=== PATIENT | male | born 1975 | race Hispanic/Latino ===

== ENCOUNTER → 2023-08-01 09:06 | Outpatient (CLI) | payer OTHER, SELFPAY ==
[2023-08-01 11:19] LABS: Add Manual Diff / Slide Review NO; Basophils Absolute Auto 0 /uL (0-100); Basophils Percent Auto 0.2 % (0-2); Eosinophils Absolute Auto 200 /uL (0-450); Eosinophils Percent Auto 2.1 % (2-4); Hematocrit 44.8 % (41-53); Hemoglobin 15.4 g/dL (13.5-17.5); Lymphocytes Absolute Auto 1500 /uL (1100-4500); Lymphocytes Percent Auto 18.7 % (25-40); Mean Corpuscular HGB Conc 34.4 % (30-36); Mean Corpuscular Hemoglobin 29.8 PG (26-34); Mean Corpuscular Volume 86.7 fL (80-100); Monocytes Absolute Auto 500 /uL (0-900); Monocytes Percent Auto 5.8 % (3-14); Neutrophils Absolute Auto 6000 /uL (1500-7000); Neutrophils Percent Auto 73.2 % (50-75); Platelet Count 203 X10^3/uL (150-400); Red Blood Cell Count 5.16 X10^6/uL (4.5-5.9); Red Cell Distribution Width 13.8 % (11.6-14.8); White Blood Cell Count 8.2 X10^3/uL (4.5-11.0)
[2023-08-01 11:30] LABS: Alanine Aminotransferase 22 IU/L (<50); Albumin 4.4 g/dL (3.5-5.0); Albumin Globulin Ratio 1.4 (1.0-2.8); Alkaline Phosphatase 52 U/L (38-126); BUN Creatinine Ratio 32.3 (6-22); Blood Urea Nitrogen 20 mg/dL (9-20); Calcium 9.4 mg/dL (8.4-10.2); Carbon Dioxide 29 mmol/L (22-32); Chloride 101 mmol/L (98-107); Cholesterol 140 mg/dL (140-199); Estimated Glomerular Filt Rate > 60 mL/min (>60); Globulin 3.2 g/dL (1.7-4.1); Glucose 92 mg/dL (70-100); HDL Cholesterol 35 mg/dL (40-60); LDL Cholesterol Calculated 93 mg/dL (<100); Potassium 3.7 mmol/L (3.4-5.1); Sodium 140 mmol/L (137-145); Total Protein 7.6 g/dL (6.3-8.2); Triglycerides 58 mg/dL (35-150)
[2023-08-07 14:49] LABS: HEMOLYSIS 21 (0-50)
[2023-08-07 14:50] LABS: Aspartate Aminotransferase 28 IU/L (17-59)
== END ==
PROVIDERS: Family Provider Family Medicine; PCP Family Medicine; Referring Provider Family Medicine; Visit Provider Family Medicine
DX: Z13.220 Encounter for screening for lipoid disorders (principal); K21.9 Gastro-esophageal reflux disease without esophagitis; R05.9 Cough, unspecified
CPT/HCPCS: 36415; 80053; 80061; 85025

== ENCOUNTER → 2023-08-26 16:03 | Outpatient (CLI) | payer OTHER, SELFPAY ==
[2023-08-26 19:56] LABS: Influenza A - CEPHEID Flu A NEGATIVE (NEGATIVE); Influenza B - CEPHEID Flu B NEGATIVE (NEGATIVE); Respiratory Syncytial Virus Negative (Negative)
[2023-08-26 20:06] LABS: COVID-19 CEPHEID 4-PLEX PCR Negative (Negative)
== END ==
PROVIDERS: Family Provider Family Medicine; PCP Family Medicine; Visit Provider Physician Assistant
DX: R05.1 Acute cough (principal)
CPT/HCPCS: 0241U

== ENCOUNTER → 2023-08-26 16:14 | Outpatient (CLI) | payer OTHER, SELFPAY ==
--- NOTE | 2023-08-26 16:16 | DI.RAD.S_ITS ---
PROCEDURE: XR CHEST 2V INDICATIONS: cough x 3-4 weeks TECHNIQUE: 2 views of the chest were acquired. COMPARISON: None. FINDINGS: Surgical changes and devices: None. Lungs and pleura: Lungs are clear. No pleural effusions or pneumothorax. Mediastinum: Suspected severe food impaction within the esophagus, with a large hiatal hernia. Bones and chest wall: No suspicious bony abnormalities. Soft tissues appear unremarkable. IMPRESSION: Suspected severe food impaction within the esophagus, with a large hiatal hernia. Recommend chest CT with contrast to exclude underlying mass. Dictated by: Brandon Mcpherson M.D. on 08/26/2023 at 16:42 Approved by: Brandon Mcpherson M.D. on 08/26/2023 at 16:43
== END ==
PROVIDERS: Family Provider Family Medicine; PCP Family Medicine; Referring Provider Physician Assistant; Visit Provider Physician Assistant
DX: J06.9 Acute upper respiratory infection, unspecified (principal); R05.1 Acute cough; K44.9 Diaphragmatic hernia without obstruction or gangrene
CPT/HCPCS: 0241U; 71046

== ENCOUNTER → 2023-08-28 08:56 | Outpatient (CLI) | payer OTHER, SELFPAY ==
--- NOTE | 2023-08-28 08:57 | DI.CT.S_ITS ---
PROCEDURE: CT CHEST W CON INDICATIONS: abnormal finding on xray - likely food in esophagus TECHNIQUE: After the administration of intravenous contrast, 5 mm thick sections acquired from the pulmonary apices to the posterior costophrenic angles. 1 mm axial lung, 5 mm thick coronal and sagittal reformats and 7 mm axial MIP were acquired. For radiation dose reduction, the following was used: automated exposure control, adjustment of mA and/or kV according to patient size. COMPARISON: [facility], , XR CHEST 2V, 08/26/2023, 16:24. FINDINGS: Image quality: Diagnostic. Lower Neck: No enlarged lymph nodes. Thyroid: No thyroid nodules which require sonographic follow up, per consensus guidelines. Axillae: No enlarged lymph nodes. Chest Wall: Unremarkable. Bones: Unremarkable. Lungs and Pleura: No pneumothorax or pleural effusions. Compressive atelectasis in the right lung and left base due to the adjacent massively distended esophagus. Cannot rule out mild aspiration. Heart: Heart size is normal. No pericardial effusion. Thoracic Vessels: The aorta and pulmonary arteries demonstrate normal size. Mediastinum and Glo: No enlarged lymph nodes. Esophagus: Massively distended esophagus throughout its entire course containing food. Esophagus causes mass effect on the mediastinum and adjacent lung measuring up to 12 x 11 cm in cross-sectional diameter. No evidence of esophageal perforation. Markedly thickened machuca of the esophagus are noted throughout its course. A component of hiatal hernia may also be present at the lower chest. Upper Abdomen: Visualized upper abdomen solid organs and bowel loops appear normal. IMPRESSION: Massively dilated esophagus, filled with food, throughout its course with diffusely thickened wall of the esophagus of unknown etiology. Correlate with achalasia. A small component of hiatal hernia may also be present. The esophagus causes mass effect on the adjacent lung with consolidative lung changes. A smaller component aspiration is difficult to rule out. Dictated by: Hiren Valenzuela M.D. on 08/28/2023 at 9:58 Approved by: Hiren Valenzuela M.D. on 08/28/2023 at 10:12
== END ==
PROVIDERS: Family Provider Family Medicine; PCP Family Medicine; Referring Provider Physician Assistant; Visit Provider Physician Assistant
DX: T18.108A Unspecified foreign body in esophagus causing other injury, initial encounter (principal); K22.89 Other specified disease of esophagus; R05.3 Chronic cough
CPT/HCPCS: 71260; Q9967

== ENCOUNTER → 2023-09-11 09:52 | Outpatient (CLI) | payer OTHER, SELFPAY ==
[2023-09-11 10:16] LABS: COVID19 -Nasal RAPID Negative (Negative)
== END ==
PROVIDERS: Family Provider Family Medicine; PCP Family Medicine; Visit Provider Family Medicine
DX: Z20.822 Contact with and (suspected) exposure to COVID-19 (principal)
CPT/HCPCS: 87635

== ENCOUNTER → 2023-09-29 13:16 | Outpatient (CLI) | payer OTHER, SELFPAY ==
--- NOTE | 2023-09-29 13:17 | DI.RAD.S_ITS ---
PROCEDURE: XR CHEST 2V INDICATIONS: cough TECHNIQUE: 2 views of the chest were acquired. COMPARISON: [facility], CT, CT CHEST W CON, 08/28/2023, 9:08. [facility], CR, XR CHEST 2V, 08/26/2023, 16:24. FINDINGS: Surgical changes and devices: None. Lungs and pleura: No consolidation identified. Possible minimal opacity in the right lower lung. No pleural effusions or pneumothorax. Mediastinum: Mediastinal contours are unchanged. Markedly dilated esophagus with food residue is unchanged. Heart size is normal. Bones and chest wall: No suspicious bony abnormalities. Soft tissues appear unremarkable. IMPRESSION: No significant interval change. Markedly dilated esophagus with food residue. Possible minimal opacity in the right lower lobe. Dictated by: Michael Castillo M.D. on 09/29/2023 at 16:53 Approved by: Michael Castillo M.D. on 09/29/2023 at 16:56
== END ==
LOC: RAD 13:17
PROVIDERS: Family Provider Family Medicine; PCP Family Medicine; Referring Provider Physician Assistant; Visit Provider Physician Assistant
DX: R05.3 Chronic cough (principal); K22.0 Achalasia of cardia
CPT/HCPCS: 71046